=== PATIENT | female | born 1955 | race Caucasian/White ===

== ENCOUNTER 2019-12-13 08:50 | Outpatient (REF) | payer OTHER, SELFPAY ==
[2019-12-13 11:49] LABS: Cholesterol 204 mg/dL; HDL Cholesterol 87 mg/dL; LDL Cholesterol Calculated 107 mg/dl; Triglycerides 50 mg/dL
== END 2019-12-13 08:51 | disposition home or self-care (01) ==
LOC: HO.LAB 08:50
PROVIDERS: PCP Internal Medicine; Visit Provider Internal Medicine Cardiovascular Disease
DX: E78.00 Pure hypercholesterolemia, unspecified (principal); I25.10 Atherosclerotic heart disease of native coronary artery without angina pectoris; I10 Essential (primary) hypertension
CPT/HCPCS: 80061

== ENCOUNTER → 2019-12-16 12:03 | Outpatient (BNVA) | payer OTHER, SELFPAY | PROVIDERS: PCP Internal Medicine; Referring Provider Internal Medicine; Visit Provider Nurse Practitioner Family | DX: Z76.89 Persons encountering health services in other specified circumstances (principal) ==

== ENCOUNTER 2019-12-19 10:03 | Outpatient (REF) | payer OTHER, SELFPAY | END 2019-12-19 10:04 | disposition home or self-care (01) | LOC: HO.LAB 10:03 | PROVIDERS: Visit Provider Internal Medicine | DX: Z20.828 Contact with and (suspected) exposure to other viral communicable diseases (principal) | CPT/HCPCS: 87635 ==

== ENCOUNTER 2019-12-25 02:17 | Outpatient (REF) | payer OTHER, SELFPAY ==
[2019-12-25 04:57] LABS: SARS COV2 PCR INHOUSE NEGATIVE (Negative)
== END 2019-12-25 02:18 | disposition home or self-care (01) ==
LOC: HO.LAB 02:17
PROVIDERS: Visit Provider Internal Medicine
DX: Z20.828 Contact with and (suspected) exposure to other viral communicable diseases (principal)
CPT/HCPCS: 87635

== ENCOUNTER 2019-12-29 12:41 | Outpatient (REF) | payer OTHER, SELFPAY ==
[2019-12-29 13:50] LABS: COVID-19 Test Negative (Negative)
== END 2019-12-29 12:42 | disposition home or self-care (01) ==
LOC: HO.LAB 12:41
PROVIDERS: Visit Provider Internal Medicine
DX: Z20.828 Contact with and (suspected) exposure to other viral communicable diseases (principal)
CPT/HCPCS: 87635

== ENCOUNTER 2020-01-17 07:24 | Outpatient (REF) | payer OTHER, SELFPAY ==
[2020-01-17 11:50] LABS: COVID-19 Test Negative (Negative)
== END 2020-01-17 07:25 | disposition home or self-care (01) ==
LOC: HO.LAB 07:24
PROVIDERS: Visit Provider Internal Medicine
DX: Z20.828 Contact with and (suspected) exposure to other viral communicable diseases (principal)
CPT/HCPCS: 87635; C9803

== ENCOUNTER 2020-05-13 14:22 | Outpatient (REF) | payer OTHER, SELFPAY ==
--- NOTE | ~2020-05-13 | MM_ITS ---
EXAMINATION: BONE DENSITOMETRY CLINICAL INDICATION: Screening for osteoporosis. COMPARISON: Previous BD dated 09/11/2017 and baseline BD dated 06/30/2011. TECHNIQUE: Using a [employer] DXA System (software version: 13.1) manufactured by [employer], dual-energy x-ray absorptiometry was performed of the lumbar spine and left hip. The images are of good technical quality. Summary results are attached. FINDINGS: AP SPINE L1-L4: Current: BMD 0.975 g/cm2, Z-score -1.1, T-score -1.7, osteopenia, 2.7% decrease from previous, 1.0% increase from baseline (<5% change is not significant). Prior: BMD 1.002 g/cm2. Baseline: BMD 0.965 g/cm2. LEFT FEMUR, NECK: Current: BMD 0.773 g/cm2, Z-score -1.1, T-score -1.9, osteopenia. Prior: BMD 0.770 g/cm2. Baseline: BMD 0.870 g/cm2. LEFT FEMUR, TOTAL: Current: BMD 0.878 g/cm2, Z-score -0.6, T-score -1.0, normal, 4.5% increase from previous, 4.7% decrease from baseline (<5% change is not significant). Prior: BMD 0.840 g/cm2. Baseline: BMD 0.921 g/cm2. IDENTIFIED RISK FACTORS: Height loss, kidney disease. Early menopause, secondary osteoporosis. HISTORY OF FRACTURE: None listed. MEDICATIONS: Calcium supplements or multivitamin, vitamin D. MM/XR DEXA axial skeleton IMPRESSION: 1. DIAGNOSIS: Osteopenia based on the lowest T-score value of -1.9 in the femoral neck applying World Health Organization criteria. 2. 10-YEAR FRACTURE RISK PREDICTION, FRAX: Major osteoporotic fracture (clinical spine, forearm, hip or shoulder) 9.4%. Hip fracture 1.2%. 3. Treatment Recommendations: NOF guidelines recommend consideration for treatment in postmenopausal women and men age 50 and older presenting with the following: -A hip or vertebral (clinical or morphometric) fracture. -T-score less than or equal to -2.5 at the femoral neck or spine after appropriate evaluation to exclude secondary causes. -Low bone mass at the hip or spine and a 10-year fracture probability by FRAX of greater than or equal to 3% for hip fracture or greater than or equal to 20% for major osteoporotic fracture based on the [place] adapted WHO algorithm. 4. Other Recommendations: All treatment decisions require clinical judgment and consideration of individual patient factors, including patient preferences, comorbidities, previous drug use, risk factors not captured in the FRAX model (e.g. frailty, falls, vitamin D deficiency, increased bone turnover, interval significant decline in bone density) and possible under or overestimation of fracture risk by FRAX. Additional medical evaluation for secondary cause of low bone mineral density may be appropriate. FUTURE SCAN RECOMMENDATION: People with diagnosed cases of osteoporosis or at high risk for fracture should have regular bone mineral density tests. For patients eligible for Medicare, routine testing is allowed once every 2 years. The testing frequency can be increased to one year for patients who have rapidly progressing disease, those who are receiving or discontinuing medical therapy to restore bone mass, or have additional risk factors.
--- NOTE | ~2020-05-13 | MM_ITS ---
EXAMINATION: MM SCREENING DIGITAL BREAST TOMOSYNTHESIS, BILATERAL CLINICAL INFORMATION: Screening. Asymptomatic. The lifetime risk of breast cancer based on the Tyrer-Cuzick Model is 8.8%. COMPARISON: Mammography: May 11, 2017 and studies dating back to December 20, 2010 TECHNIQUE: Digital breast tomosynthesis is performed in both the craniocaudal and mediolateral oblique views along with computer-aided detection (CAD). Synthesized 2D images are generated from the tomosynthesis. FINDINGS: The breasts are almost entirely fatty (ACR BI-RADS breast composition Category a). There are no significant masses, abnormal calcifications, or other abnormalities. MM/MM tomosynthesis screening BI IMPRESSION: There are no significant changes from prior study. ASSESSMENT: BI-RADS 1: Negative RECOMMENDATION: Routine annual mammography screening. This patient's information was entered into a reminder system with a target due date for their next mammogram.
== END 2020-05-13 14:23 | disposition home or self-care (01) ==
LOC: HO.MAMMO 14:22
PROVIDERS: PCP Internal Medicine; Visit Provider Obstetrics & Gynecology
DX: Z12.31 Encounter for screening mammogram for malignant neoplasm of breast (principal); M81.8 Other osteoporosis without current pathological fracture; M85.80 Other specified disorders of bone density and structure, unspecified site; N28.9 Disorder of kidney and ureter, unspecified; Z78.0 Asymptomatic menopausal state
CPT/HCPCS: 77063; 77067; 77080

== ENCOUNTER 2020-08-22 05:00 | Outpatient (REF) | payer OTHER, SELFPAY ==
[2020-08-22 06:32] LABS: Cholesterol 223 mg/dL; HDL Cholesterol 86 mg/dL; LDL Cholesterol Calculated 125 mg/dl; Triglycerides 61 mg/dL
== END 2020-08-22 05:01 | disposition home or self-care (01) ==
LOC: HO.LAB 05:00
PROVIDERS: Visit Provider Nurse Practitioner Family
DX: E78.5 Hyperlipidemia, unspecified (principal)
CPT/HCPCS: 36415; 80061

== ENCOUNTER 2020-10-18 10:42 | Outpatient (REF) | payer OTHER, SELFPAY ==
[2020-10-18 13:15] LABS: Hematocrit 40.3 % (37-47); Hemoglobin 12.7 g/dl (12.0-16.0); Mean Corpuscular HGB Conc 31.5 g/dl (31.0-35.0); Mean Corpuscular Hemoglobin 30.2 pg (27.0-33.0); Mean Platelet Volume 10.5 fL (9.4-12.3); Platelet Count 259 X10*3/uL (160-400); White Blood Count 5.4 X10*3/uL (4.8-10.8)
[2020-10-18 13:54] LABS: Alanine Aminotransferase 20 U/L (0-31); Albumin Level 4.4 g/dL (3.5-5.0); Alkaline Phosphatase 78 U/L (39-117); Anion Gap 15 (12-20); Aspartate Amino Transferase 24 U/L (5-31); Bilirubin Total 0.5 mg/dL (0.0-1.0); Blood Urea Nitrogen 19 mg/dL (9-16); Calcium 9.4 mg/dL (8.4-10.2); Carbon Dioxide 26 mmol/L (22-29); Chloride 106 mmol/L (96-108); Estimated Glomerular Filt Rate 57; Glucose Fasting 102 mg/dL (60-99); Potassium 5.1 mmol/L (3.3-5.1); Sodium 142 mmol/L (135-145); Total Protein 6.9 g/dL (6.5-8.0)
[2020-10-18 14:00] LABS: TSH reflex Free T4 1.67 uIU/mL (0.32-4.0)
== END 2020-10-18 10:43 | disposition home or self-care (01) ==
LOC: HO.LAB 10:42
PROVIDERS: PCP Internal Medicine; Visit Provider Internal Medicine
DX: Z00.00 Encounter for general adult medical examination without abnormal findings (principal); E78.5 Hyperlipidemia, unspecified; I10 Essential (primary) hypertension
CPT/HCPCS: 36415; 80053; 84443; 85027

== ENCOUNTER → 2020-12-23 13:21 | Outpatient (BNVA) | payer OTHER, SELFPAY | PROVIDERS: PCP Internal Medicine; Referring Provider Internal Medicine; Visit Provider Internal Medicine Cardiovascular Disease | DX: I25.10 Atherosclerotic heart disease of native coronary artery without angina pectoris (principal); E78.5 Hyperlipidemia, unspecified | CPT/HCPCS: 93005 ==

== ENCOUNTER 2021-03-02 23:21 | Emergency (ER) | payer OTHER, SELFPAY ==
--- NOTE | ~2021-03-02 | CT_ITS ---
EXAM: NONCONTRAST AND CONTRAST-ENHANCED CT OF THE ABDOMEN AND PELVIS INDICATION: Rectal bleeding COMPARISON: 08/04/2011 TECHNIQUE: 80 mL Omnipaque 350 IV contrast was utilized. Multidetector helical imaging was performed through the abdomen and pelvis prior to and following contrast administration. Coronal and sagittal reformatted images were created at the technologist workstation. DOSE LOWERING TECHNIQUES: This CT examination was performed using dose optimization techniques as appropriate, variously including the following: - Automated exposure control - Adjustment of mA and/or kV according to patient size (this includes techniques or standardized protocols for targeted exams were dose is matched to indication/reason for exam; i.e. extremities or head) - Use of iterative reconstruction technique DLP: 1926 mGy-cm FINDINGS: The lung bases are clear. The liver is homogeneous in attenuation without intrahepatic biliary ductal dilatation. The gallbladder is unremarkable. The spleen, pancreas, and adrenal glands are within normal limits. Bilateral nephrograms are symmetric. Partially atrophic left kidney with multifocal cortical scarring. No hydronephrosis. No obstructing renal or ureteral calculi are present. The urinary bladder is unremarkable. The uterus and adnexa are unremarkable. There is a segment of descending colon wall thickening with adjacent stranding, suspicious for a short segment of colitis. No evidence of bowel obstruction. The appendix is unremarkable. No active gastrointestinal hemorrhage is seen. No free fluid or free air is identified. Mild atherosclerotic calcification is noted. No retroperitoneal or pelvic lymphadenopathy is seen. Scattered mild degenerative changes noted in the spine. CT/CT gi bleed abd pel wo/w con IMPRESSION: No active gastrointestinal hemorrhage identified. Short segment of colitis in the descending colon. Correlation with recent or followup colonoscopy is advised to exclude an underlying mass lesion.
--- NOTE | 2021-03-02 23:34 | ED_ITS ---
HPI - Abdominal Pain General Chief Complaint: Abdominal Pain <Anne Chase NP - Last Filed: 03/03/21 03:08> Stated Complaint: rectal bleeding <Anne Chase NP - Last Filed: 03/03/21 03:08> Source: patient <Anne Chase NP - Last Filed: 03/03/21 03:08> Mode of arrival: ambulatory <Anne Chase NP - Last Filed: 03/03/21 03:08> Limitations: no limitations <Anne Chase NP - Last Filed: 03/03/21 03:08> History of Present Illness HPI narrative: 65-year-old female presents with 2 days of severe abdominal pain and br ight red blood per rectum. <Anne Chase NP - Last Filed: 03/03/21 03:08> MD elicited complaint: abdominal pain <Anne Chase NP - Last Filed: 03/03/21 03:08> Pertinent past history: none <Anne Chase NP - Last Filed: 03/03/21 03:08> Onset (ago): day(s) (2) <Anne Chase NP - Last Filed: 03/03/21 03:08> Pain Consistency: constant <Anne Chase NP - Last Filed: 03/03/21 03:08> Location: diffuse <Anne Chase NP - Last Filed: 03/03/21 03:08> Severity: severe <Anne Chase NP - Last Filed: 03/03/21 03:08> Quality: cramping, aching and fullness <Anne Chase NP - Last Filed: 03/03/21 03:08> Radiation: back <Anne Chase NP - Last Filed: 03/03/21 03:08> Exacerbating factors: bowel movement and movement <Anne Chase NP - Last Filed: 03/03/21 03:08> Relieving factors: nothing <Anne Chase NP - Last Filed: 03/03/21 03:08> Associated symptoms: constipation and hematochezia <Anne Chase NP - Last Filed: 03/03/21 03:08> Related Data Home Medications: Home Medications Medication Instructions Recorded Confirmed coenzyme Q10 100 mg capsule 100 mg PO DAILY 12/16/19 12/23/20 (CoQ-10) Previous Rx's Medication Instructions Recorded propranolol 60 mg capsule,24 60 mg PO DAILY 90 Days #90 cap 03/02/20 hr,extended release omeprazole 20 mg capsule,delayed 20 mg PO DAILY #90 cap 05/10/20 release amlodipine 2.5 mg tablet 2.5 mg PO DAILY 90 Days #90 tab 10/04/20 ezetimibe 10 mg tablet (Zetia) 10 mg PO DAILY #30 tab 12/23/20 rosuvastatin 10 mg tablet 10 mg PO DAILY #30 tab 12/23/20 levothyroxine 88 mcg tablet 88 mcg PO DAILY #90 tab 01/05/21 levofloxacin 750 mg tablet 750 mg PO DAILY 7 Days #7 tab 03/03/21 metronidazole 500 mg tablet 500 mg PO Q8H 7 Days #21 tab 03/03/21 ondansetron 4 mg disintegrating 4 mg PO Q8H PRN #14 tab 03/03/21 tablet oxycodone 5 mg tablet 5 mg PO Q8H PRN #10 tab 03/03/21 <Anne Chase [employer] - Last Filed: 03/03/21 03:08> Allergies/Adverse Reactions: Allergies Allergy/AdvReac Type Severity Reaction Status Date / Time Sulfa (Sulfonamide Allergy Unknown rash, Verified 03/02/21 23:46 Antibiotics) itching alendronate sodium [Fosamax] AdvReac Unknown gerd Verified 03/02/21 23:46 ezetimibe [Zetia] AdvReac Unknown Diarrhea Verified 03/02/21 23:46 <Anne Chase NP - Last Filed: 03/03/21 03:08> Review of Systems Review of Systems Constitutional: No Weight loss, No Fever, No Chills, No Night Sweats, No Fatigue, No Malaise ENT/Mouth: No Hearing loss, No Ear Pain, No Nasal Congestion, No Sinus Pain, No Hoarseness, No sore throat, No Rhinorrhea, No Swallowing Difficulty Eyes: No Eye Pain, No Swelling, No Redness, No Foreign Body, No Discharge, No V ision Changes Cardiovascular: No Chest Pain, No SOB, No Dyspnea on Exertion, No Orthopnea, No Edema, No Palpitations Respiratory: No Cough, No Sputum, No Wheezing, No Smoke Exposure, No Dyspnea Gastrointestinal: No Nausea, no Vomiting, no Diarrhea, positive abdominal Pain, positive Hematochezia, No Melena Genitourinary: no irregular bleeding, No Dysuria, No Urinary Frequency, No Hematuria, No Urinary Incontinence, No Urgency, No Flank Pain, No Urinary Flow Changes, No Hesitancy Musculoskeletal: No joint pain, No Myalgias, No Joint Swelling Skin: No Skin Lesions, No rash Neuro: No Weakness, No Numbness, No Paresthesias, No Loss of Consciousness, No Dizziness, No Headache Psych: No Anxiety/Panic, No Depression, No SI/HI/AH/VH, No Social Issues Heme/Lymph: No Bruising, No Bleeding,No Lymphadenopathy Endocrine: No Polyuria, No Polydipsia, No Temperature Intolerance <Anne Chase NP - Last Filed: 03/03/21 03:08> Yes all other systems are reviewed and are negative <Anne Chase NP - Last Filed: 03/03/21 03:08> Physical Exam Vital Signs: Vital Signs: Last Vital Signs Temp 97.7 F 03/02/21 23:38 Pulse 85 03/03/21 03:18 Resp 16 03/03/21 03:18 BP 192/92 H 03/03/21 03:18 Pulse Ox 98 03/03/21 03:18 BMI result Body Mass Index 33.4 <Anne Chase NP - Last Filed: 03/03/21 03:08> Vital Signs: Last Vital Signs Temp 97.7 F 03/02/21 23:38 Pulse 85 03/03/21 03:18 Resp 16 03/03/21 03:18 BP 192/92 H 03/03/21 03:18 Pulse Ox 98 03/03/21 03:18 BMI result Body Mass Index 33.4 <Arun Aguilera MD - Last Filed: 03/03/21 07:00> Appearance: Alert. Oriented X3. No acute distress. Eyes: Pupils equal, round and reactive to light. Sclera nonicteric. ENT: Pharynx normal. Moist mucous membranes. Neck: Normal inspection. Neck supple. CVS: Normal heart rate and rhythm. Pulses normal. Respiratory: No respiratory distress. Breath sounds normal. Abdomen: Soft and diffusely tender without rigidity or distention. Rectal exam with normal rectal tone, positive hemorrhoids. Skin: Skin warm and dry. Normal skin color. Normal skin turgor. Extremities: No lower extremity edema. Gait well-balanced well coordinated. Neuro: No motor deficit. No sensory deficit. Cranial nerves 2-12 intact. <Anne Chase NP - Last Filed: 03/03/21 03:08> Course Course Course Narrative: 65-year-old female presents with abdominal pain and bright red blood per r ectum. Will order labs, CT GI study. 1:00 a.m. labs are unremarkable, H&H negative for blood loss anemia, BUN elevated at 25. EKG normal sinus. Troponins negative. CT GI study pending. 2:[address] GI study positive for colitis. 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 Patient would like to be discharged home on p.o. medications. Patient does understand proper follow-up with primary care physician and Gastroenterology. Patient verbalized understanding of and agrees to plan of care discharge home <Anne Chase NP - Last Filed: 03/03/21 03:08> MDM - Abdominal Pain MDM Narrative Medical decision making narrative: Colitis <Anne Chase NP - Last Filed: 03/03/21 03:08> Differential Diagnosis Differential diagnosis: Likely abdominal pain, acute appendicitis, bowel perforation, diverticulitis and mesenteric ischemia <Anne Chase NP - Last Filed: 03/03/21 03:08> Medical Records Attestation: I reviewed the patient's medical records. <Anne Chase NP - Last Filed: 03/03/21 03:08> Lab Data Attestation: I reviewed the patient's lab results. <Anne Chase NP - Last Filed: 03/03/21 03:08> Result diagrams: : 03/02/21 23:58 03/02/21 23:58 <Anne Chase NP - Last Filed: 03/03/21 03:08> Labs: Lab Results 03/02/21 03/02/21 03/02/21 Range/Units 23:58 23:58 23:58 WBC 8.5 (4.8-10.8) X10*3/uL RBC 4.09 L (4.20-5.50) X10*6/uL Hgb 12.4 (12.0-16.0) g/dl Hct 38.6 (37.0-47.0) % MCV 94.4 (80.0-98.0) fL MCH 30.3 (27.0-33.0) pg MCHC 32.1 (31.0-35.0) g/dl RDW 13.9 (11.0-16.0) % Plt Count 247 (160-400) X10*3/uL MPV 9.4 (9.4-12.3) fL Immature Gran % (Auto) 0.2 (0.0-0.4) % Neut % (Auto) 61.0 (45-73) % Lymph % (Auto) 29.6 (20-40) % [place] % (Auto) 8.1 (2-11) % Eos % (Auto) 0.7 (0-4) % Baso % (Auto) 0.4 (0-2) % Lymph # (Auto) 2.5 (1.2-4.9) X10*3/uL [place] # (Auto) 0.7 (0.1-1.2) X10*3/uL Eos # (Auto) 0.1 (0.0-0.4) X10*3/uL Baso # (Auto) 0.0 (0.0-0.2) X10*3/uL Abs Immat Gran (auto) 0.02 (0.00-0.03) X10*3/uL Absolute Neuts (auto) 5.2 (2.0-8.3) x10*3/uL Absolute Nucleated RBC 0.000 (0.0-0.012) X10*3/uL Nucleated RBC % (auto) 0.0 (0.0-0.2) /100WBC PT 10.7 (9.9-13.0) SEC INR 0.9 (0.9-1.1) APTT 33.5 (24.1-38.0) SEC Sodium 142 (135-145) mmol/L Potassium 4.3 (3.3-5.1) mmol/L Chloride 108 (96-108) mmol/L Carbon Dioxide 26 (22-29) mmol/L Anion Gap 12 (12-20) BUN 25 H (9-16) mg/dL Creatinine 0.97 (0.5-1.4) mg/dL Estim Creat Clear Calc 66.2 Estimated GFR 58 Random Glucose 108 (60-115) mg/dL Calcium 9.8 (8.4-10.2) mg/dL Magnesium 2.0 (1.6-2.6) mg/dL Total Bilirubin 0.4 (0.0-1.0) mg/dL Direct Bilirubin < 0.2 (0.0-0.5) mg/dL AST 25 (5-31) U/L ALT 25 (0-31) U/L Alkaline Phosphatase 79 (39-117) U/L Troponin I High Sens (<3.5-17.0) ng/L Total Protein 7.1 (6.5-8.0) g/dL Albumin 4.3 (3.5-5.0) g/dL Lipase 20 (8-78) U/L Stool Occult Blood (NEGATIVE) 03/02/21 03/03/21 Range/Units 23:58 00:06 WBC (4.8-10.8) X10*3/uL RBC (4.20-5.50) X10*6/uL Hgb (12.0-16.0) g/dl Hct (37.0-47.0) % MCV (80.0-98.0) fL MCH (27.0-33.0) pg MCHC (31.0-35.0) g/dl RDW (11.0-16.0) % Plt Count (160-400) X10*3/uL MPV (9.4-12.3) fL Immature Gran % (Auto) (0.0-0.4) % Neut % (Auto) (45-73) % Lymph % (Auto) (20-40) % [place] % (Auto) (2-11) % Eos % (Auto) (0-4) % Baso % (Auto) (0-2) % Lymph # (Auto) (1.2-4.9) X10*3/uL [place] # (Auto) (0.1-1.2) X10*3/uL Eos # (Auto) (0.0-0.4) X10*3/uL Baso # (Auto) (0.0-0.2) X10*3/uL Abs Immat Gran (auto) (0.00-0.03) X10*3/uL Absolute Neuts (auto) (2.0-8.3) x10*3/uL Absolute Nucleated RBC (0.0-0.012) X10*3/uL Nucleated RBC % (auto) (0.0-0.2) /100WBC PT (9.9-13.0) SEC INR (0.9-1.1) APTT (24.1-38.0) SEC Sodium (135-145) mmol/L Potassium (3.3-5.1) mmol/L Chloride (96-108) mmol/L Carbon Dioxide (22-29) mmol/L Anion Gap (12-20) BUN (9-16) mg/dL Creatinine (0.5-1.4) mg/dL Estim Creat Clear Calc Estimated GFR Random Glucose (60-115) mg/dL Calcium (8.4-10.2) mg/dL Magnesium (1.6-2.6) mg/dL Total Bilirubin (0.0-1.0) mg/dL Direct Bilirubin (0.0-0.5) mg/dL AST (5-31) U/L ALT (0-31) U/L Alkaline Phosphatase (39-117) U/L Troponin I High Sens < 3.5 (<3.5-17.0) ng/L Total Protein (6.5-8.0) g/dL Albumin (3.5-5.0) g/dL Lipase (8-78) U/L Stool Occult Blood POSITIVE (NEGATIVE) <Anne Chase NP - Last Filed: 03/03/21 03:08> Lab Results 03/02/21 03/02/21 03/02/21 Range/Units 23:58 23:58 23:58 WBC 8.5 (4.8-10.8) X10*3/uL RBC 4.09 L (4.20-5.50) X10*6/uL Hgb 12.4 (12.0-16.0) g/dl Hct 38.6 (37.0-47.0) % MCV 94.4 (80.0-98.0) fL MCH 30.3 (27.0-33.0) pg MCHC 32.1 (31.0-35.0) g/dl RDW 13.9 (11.0-16.0) % Plt Count 247 (160-400) X10*3/uL MPV 9.4 (9.4-12.3) fL Immature Gran % (Auto) 0.2 (0.0-0.4) % Neut % (Auto) 61.0 (45-73) % Lymph % (Auto) 29.6 (20-40) % [place] % (Auto) 8.1 (2-11) % Eos % (Auto) 0.7 (0-4) % Baso % (Auto) 0.4 (0-2) % Lymph # (Auto) 2.5 (1.2-4.9) X10*3/uL [place] # (Auto) 0.7 (0.1-1.2) X10*3/uL Eos # (Auto) 0.1 (0.0-0.4) X10*3/uL Baso # (Auto) 0.0 (0.0-0.2) X10*3/uL Abs Immat Gran (auto) 0.02 (0.00-0.03) X10*3/uL Absolute Neuts (auto) 5.2 (2.0-8.3) x10*3/uL Absolute Nucleated RBC 0.000 (0.0-0.012) X10*3/uL Nucleated RBC % (auto) 0.0 (0.0-0.2) /100WBC PT 10.7 (9.9-13.0) SEC INR 0.9 (0.9-1.1) APTT 33.5 (24.1-38.0) SEC Sodium 142 (135-145) mmol/L Potassium 4.3 (3.3-5.1) mmol/L Chloride 108 (96-108) mmol/L Carbon Dioxide 26 (22-29) mmol/L Anion Gap 12 (12-20) BUN 25 H (9-16) mg/dL Creatinine 0.97 (0.5-1.4) mg/dL Estim Creat Clear Calc 66.2 Estimated GFR 58 Random Glucose 108 (60-115) mg/dL Calcium 9.8 (8.4-10.2) mg/dL Magnesium 2.0 (1.6-2.6) mg/dL Total Bilirubin 0.4 (0.0-1.0) mg/dL Direct Bilirubin < 0.2 (0.0-0.5) mg/dL AST 25 (5-31) U/L ALT 25 (0-31) U/L Alkaline Phosphatase 79 (39-117) U/L Troponin I High Sens (<3.5-17.0) ng/L Total Protein 7.1 (6.5-8.0) g/dL Albumin 4.3 (3.5-5.0) g/dL Lipase 20 (8-78) U/L Stool Occult Blood (NEGATIVE) 03/02/21 03/03/21 Range/Units 23:58 00:06 WBC (4.8-10.8) X10*3/uL RBC (4.20-5.50) X10*6/uL Hgb (12.0-16.0) g/dl Hct (37.0-47.0) % MCV (80.0-98.0) fL MCH (27.0-33.0) pg MCHC (31.0-35.0) g/dl RDW (11.0-16.0) % Plt Count (160-400) X10*3/uL MPV (9.4-12.3) fL Immature Gran % (Auto) (0.0-0.4) % Neut % (Auto) (45-73) % Lymph % (Auto) (20-40) % [place] % (Auto) (2-11) % Eos % (Auto) (0-4) % Baso % (Auto) (0-2) % Lymph # (Auto) (1.2-4.9) X10*3/uL [place] # (Auto) (0.1-1.2) X10*3/uL Eos # (Auto) (0.0-0.4) X10*3/uL Baso # (Auto) (0.0-0.2) X10*3/uL Abs Immat Gran (auto) (0.00-0.03) X10*3/uL Absolute Neuts (auto) (2.0-8.3) x10*3/uL Absolute Nucleated RBC (0.0-0.012) X10*3/uL Nucleated RBC % (auto) (0.0-0.2) /100WBC PT (9.9-13.0) SEC INR (0.9-1.1) APTT (24.1-38.0) SEC Sodium (135-145) mmol/L Potassium (3.3-5.1) mmol/L Chloride (96-108) mmol/L Carbon Dioxide (22-29) mmol/L Anion Gap (12-20) BUN (9-16) mg/dL Creatinine (0.5-1.4) mg/dL Estim Creat Clear Calc Estimated GFR Random Glucose (60-115) mg/dL Calcium (8.4-10.2) mg/dL Magnesium (1.6-2.6) mg/dL Total Bilirubin (0.0-1.0) mg/dL Direct Bilirubin (0.0-0.5) mg/dL AST (5-31) U/L ALT (0-31) U/L Alkaline Phosphatase (39-117) U/L Troponin I High Sens < 3.5 (<3.5-17.0) ng/L Total Protein (6.5-8.0) g/dL Albumin (3.5-5.0) g/dL Lipase (8-78) U/L Stool Occult Blood POSITIVE (NEGATIVE) <Arun Aguilera MD - Last Filed: 03/03/21 07:00> Imaging Data CT abdomen pelvis GI study: Attestation: I personally reviewed and interpreted this imaging study as follows: <Anne Chase NP - Last Filed: 03/03/21 03:08> Radiologist's impression: EXAM: NONCONTRAST AND CONTRAST-ENHANCED CT OF THE ABDOMEN AND PELVIS INDICATION: Rectal bleeding COMPARISON: 08/04/2011 TECHNIQUE: 80 mL Omnipaque 350 IV contrast was utilized. Multidetector helical imaging was performed through the abdomen and pelvis prior to and following contrast administration. Coronal and sagittal reformatted images were created at the technologist workstation. DOSE LOWERING TECHNIQUES: This CT examination was performed using dose optimization techniques as appropriate, variously including the following: ?- Automated exposure control ?- Adjustment of mA and/or kV according to patient size (this includes techniques or standardized protocols for targeted exams were dose is matched to indication/reason for exam; i.e. extremities or head) ?- Use of iterative reconstruction technique DLP: 1926 mGy-cm FINDINGS: The lung bases are clear. The liver is homogeneous in attenuation without intrahepatic biliary ductal dilatation. The gallbladder is unremarkable. The spleen, pancreas, and adrenal glands are within normal limits. Bilateral nephrograms are symmetric. Partially atrophic left kidney with multifocal cortical scarring. No hydronephrosis. No obstructing renal or ureteral calculi are present. The urinary bladder is unremarkable. The uterus and adnexa are unremarkable. There is a segment of descending colon wall thickening with adjacent stranding, suspicious for a short segment of colitis. No evidence of bowel obstruction. The appendix is unremarkable. No active gastrointestinal hemorrhage is seen. No free fluid or free air is identified. Mild atherosclerotic calcification is noted. No retroperitoneal or pelvic lymphadenopathy is seen. Scattered mild degenerative changes noted in the spine. CT/CT gi bleed abd pel wo/w con IMPRESSION: No active gastrointestinal hemorrhage identified. Short segment of colitis in the descending colon. Correlation with recent or followup colonoscopy is advised to exclude an underlying mass lesion. <Anne Chase NP - Last Filed: 03/03/21 03:08> ECG Data Attestation: I personally reviewed and interpreted this ECG as follows: <Anne Chase NP - Last Filed: 03/03/21 03:08> ECG interpretation date: 03/02/21 <Anne Chase NP - Last Filed: 03/03/21 03:08> ECG interpretation time: 23:56 <Anne Chase NP - Last Filed: 03/03/21 03:08> Prior ECG tracings: available for review <Anne Chase NP - Last Filed: 03/03/21 03:08> Interpretation: Ventricular rate 77 beats per minute, OH 160, QRS 86, QT 370, QTC 418 normal sinus rhythm normal EKG no indication of ST elevation or depression, no indication of ischemia. <Anne Chase NP - Last Filed: 03/03/21 03:08> Discharge Plan Discharge Clinical Impression: Colitis, Bright red rectal bleeding <Anne Chase NP - Last Filed: 03/03/21 03:08> Patient Disposition: Home, Self-Care <Anne Chase NP - Last Filed: 03/03/21 03:08> Instructions: Rectal Bleeding (ED), Colitis (ED) <Anne Chase NP - Last Filed: 03/03/21 03:08> Additional Instructions: You were evaluated for abdominal pain and rectal bleeding. CT abdomen pelvis GI study indicates colitis. Please take Flagyl 500 mg 3 times a day for the next 7 days. Take Levaquin 750 mg for the next 7 days. I prescribed oxycodone for pain management. This medication is a narcotic and has high risk for addiction and abuse. Do not drive or operate machinery while taking this medication. This medication may cause drowsiness, increased risk for falls, delay reaction time, and cause constipation. Please take MiraLax daily while on this medication. Please follow-up with Gastroenterology. I referred you to Dr. Duarte. Thank you for choosing this emergency department for evaluation. Please follow-up with primary care physician as needed. Return to the emergency department for any new, concerning, or worsening symptoms. <Anne Chase NP - Last Filed: 03/03/21 03:08> Prescriptions: New metronidazole 500 mg tablet 500 mg PO Q8H 7 Days Qty: 21 RF: 0 levofloxacin 750 mg tablet 750 mg PO DAILY 7 Days Qty: 7 RF: 0 oxycodone 5 mg tablet 5 mg PO Q8H PRN (Reason: pain) Qty: 10 RF: 0 ondansetron 4 mg tablet,disintegrating 4 mg PO Q8H PRN (Reason: nausea and vomiting) Qty: 14 RF: 0 No Action propranolol 60 mg capsule,extended release 24 hr 60 mg PO DAILY 90 Days Qty: 90 RF: 3 omeprazole 20 mg capsule,delayed release(DR/EC) 20 mg PO DAILY Qty: 90 RF: 3 amlodipine 2.5 mg tablet 2.5 mg PO DAILY 90 Days Qty: 90 RF: 3 levothyroxine 88 mcg tablet 88 mcg PO DAILY Qty: 90 RF: 3 coenzyme Q10 [CoQ-10] 100 mg capsule 100 mg PO DAILY RF: 0 ezetimibe [Zetia] 10 mg tablet 10 mg PO DAILY Qty: 30 RF: 5 rosuvastatin 10 mg tablet 10 mg PO DAILY Qty: 30 RF: 5 <Anne Chase NP - Last Filed: 03/03/21 03:08> Referrals: Kole Duarte [Physician] - 2 days (Colitis) <Anne Chase NP - Last Filed: 03/03/21 03:08> Stand Alone Forms: Work/School Release <Anne Chase NP - Last Filed: 03/03/21 03:08> Interventions: ED Discharge Assessment Last Done: 03/03/21 03:15 <Anne Chase NP - Last Filed: 03/03/21 03:08> Discharge Date/Time: 03/03/21 03:31 <Anne Chase NP - Last Filed: 03/03/21 03:08> [facility] Past Medical History Attestation statement: The following information was validated with the patient. <Anne Chase NP - Last Filed: 03/03/21 03:08> Source: old records reviewed <Anne Chase NP - Last Filed: 03/03/21 03:08> Medical History: Medical History Annual physical exam Coronary arteriosclerosis Hearing loss HLD (hyperlipidemia) HTN (hypertension) Lower back pain Normal colonoscopy <Anne Chase NP - Last Filed: 03/03/21 03:08> Surgical History: Surgical History Hx of breast biopsy Hx of varicose vein stripping <Anne Chase NP - Last Filed: 03/03/21 03:08> Family History Family History: Family History Father CVD (cardiovascular disease) Mother CVD (cardiovascular disease) Arthritis <Anne Chase NP - Last Filed: 03/03/21 03:08> Social History Social History: Social History Housing: House Alcohol intake: current Alcohol intake frequency: holidays/special occasions only Patient Tobacco Use Status: Never used Tobacco e-Cigarette/Vaping Use: Never Used Advance Directives: No Advance Directives Information Provided: Yes Patient : No service: No Current occupational status: employed <Anne Chase NP - Last Filed: 03/03/21 03:08>
--- NOTE | 2021-03-02 23:34 | ECG_ITS ---
Test Reason : cp Blood Pressure : / mmHG Vent. Rate : 077 BPM Atrial Rate : 077 BPM P-R Int : 160 ms QRS Dur : 086 ms QT Int : 370 ms P-R-T Axes : 043 047 035 degrees QTc Int : 418 ms Normal sinus rhythm Normal ECG When compared with ECG of 13-JUL-2019 07:42, No significant change was found Referred By: Anne Chase Electronically Signed By:Wellington Grande
[2021-03-02 23:38] VITALS: BP 175/81; PULSE 88; RESP 12; TEMP 36.5; O2SAT 97; BMI 33.4
[2021-03-03 00:03] LABS: Basophils Percent Auto 0.4 % (0-2); Eosinophils Absolute Auto 0.1 X10*3/uL (0.0-0.4); Eosinophils Percent Auto 0.7 % (0-4); Hematocrit 38.6 % (37.0-47.0); Hemoglobin 12.4 g/dl (12.0-16.0); Imm Gran Abs Auto 0.02 X10*3/uL (0.00-0.03); Imm Gran Pct Auto 0.2 % (0.0-0.4); Lymphocytes Absolute Auto 2.5 X10*3/uL (1.2-4.9); Lymphocytes Percent Auto 29.6 % (20-40); MANUAL DIFF FLAG NO; Mean Corpuscular HGB Conc 32.1 g/dl (31.0-35.0); Mean Corpuscular Hemoglobin 30.3 pg (27.0-33.0); Mean Corpuscular Volume 94.4 fL (80.0-98.0); Mean Platelet Volume 9.4 fL (9.4-12.3); Monocytes Absolute Auto 0.7 X10*3/uL (0.1-1.2); Monocytes Percent Auto 8.1 % (2-11); Neutrophils Absolute Auto 5.2 x10*3/uL (2.0-8.3); Platelet Count 247 X10*3/uL (160-400); Red Blood Count 4.09 X10*6/uL (4.20-5.50); Red Cell Distribution Width 13.9 % (11.0-16.0); White Blood Count 8.5 X10*3/uL (4.8-10.8)
[2021-03-03 00:09] LABS: INTERNATIONAL NORM RATIO 0.9 (0.9-1.1); Prothrombin Time 10.7 SEC (9.9-13.0)
[2021-03-03 00:10] LABS: OBS Int Ctl Valid YES; OBS1 POSITIVE (NEGATIVE)
[2021-03-03 00:12] LABS: Partial Thromboplastin Time 33.5 SEC (24.1-38.0)
[2021-03-03] MEDS: 0.9 % Sodium Chloride 1,000 ML 999 ML IVCONT (00:14)
[2021-03-03 00:17] VITALS: RESP 15
[2021-03-03] MEDS: ondansetron HCL 4 MG/2 ML VIAL IVPUSH (00:17)
[2021-03-03] MEDS: Morphine Sulfate 2 MG/ML CARTRIDGE IVPUSH (00:17)
[2021-03-03 00:23] LABS: Alanine Aminotransferase 25 U/L (0-31); Albumin Level 4.3 g/dL (3.5-5.0); Alkaline Phosphatase 79 U/L (39-117); Anion Gap 12 (12-20); Aspartate Amino Transferase 25 U/L (5-31); Bilirubin Direct < 0.2 mg/dL (0.0-0.5); Bilirubin Total 0.4 mg/dL (0.0-1.0); Blood Urea Nitrogen 25 mg/dL (9-16); Calcium 9.8 mg/dL (8.4-10.2); Carbon Dioxide 26 mmol/L (22-29); Chloride 108 mmol/L (96-108); Creatinine Clr Calc Pharmacy 66.2; Estimated Glomerular Filt Rate 58; Glucose Random 108 mg/dL (60-115); Lipase 20 U/L (8-78); Potassium 4.3 mmol/L (3.3-5.1); Sodium 142 mmol/L (135-145); Total Protein 7.1 g/dL (6.5-8.0)
[2021-03-03 00:24] VITALS: BP 161/77; PULSE 95; RESP 16; O2SAT 96
[2021-03-03 00:27] LABS: Troponin-I High Sensitivity < 3.5 ng/L (<3.5-17.0)
--- NOTE | 2021-03-03 01:42 | PC.NURSE ---
PT stated that she went to have a BM but nothing but blood came out. Blood had multiple clots with some clear mucous mixed in.
[2021-03-03] MEDS: iohexoL 350 MG/ML 100 ML INFUS..BTL 80 ML IV (01:46)
[2021-03-03 02:17] VITALS: BP 155/76; PULSE 80; RESP 18; O2SAT 99
[2021-03-03] MEDS: metroNIDAZOLE 500 MG TABLET PO (03:03)
[2021-03-03] MEDS: levoFLOXacin 750 MG TABLET PO (03:03)
[2021-03-03] MEDS: oxyCODONE HCl Immed Release 5 MG TABLET PO (03:03)
[2021-03-03 03:18] VITALS: BP 192/92; PULSE 85; RESP 16; O2SAT 98
--- NOTE | 2021-03-03 03:21 | PC.NURSE ---
PT found to be hypertensive upon assessment at discharge. PT stated that she did not take her BP meds before coming to the hospital and would do so as soon as she gets home. PT is asymptomatic with hypertension.
== END 2021-03-03 03:31 | disposition home or self-care (01) ==
PROVIDERS: Nurse Practitioner Family; Emergency Provider Emergency Medicine; PCP Internal Medicine
DX: K52.9 Noninfective gastroenteritis and colitis, unspecified (principal); K62.5 Hemorrhage of anus and rectum; R10.9 Unspecified abdominal pain; I10 Essential (primary) hypertension; E78.5 Hyperlipidemia, unspecified; Z79.02 Long term (current) use of antithrombotics/antiplatelets; Z79.899 Other long term (current) drug therapy
CPT/HCPCS: 36415; 74178; 80048; 80076; 82272; 83690; 83735; 84484; 85025; 85610; 85730; 93005; 96361; 96374; 96375; 99284; J2270; J2405; Q9967

== ENCOUNTER 2021-04-12 10:35 | Outpatient (REF) | payer OTHER, SELFPAY ==
--- NOTE | ~2021-04-12 | XR_ITS ---
EXAMINATION: XR KNEE, RIGHT CLINICAL INFORMATION: Unremarkable. COMPARISON: None TECHNIQUE: Four views of the right knee. FINDINGS: There is mild medial and significant patellofemoral compartment loss of joint space with periarticular spurring. There is no loose bodies. No bony erosive changes. No abnormal suprapatellar joint effusion. The soft tissues are normal. XR/XR knee RT 4V IMPRESSION: Mild degenerative changes medial and patellofemoral compartments with periarticular spurring. No visible acute fracture or dislocation seen.
== END 2021-04-12 10:36 | disposition home or self-care (01) ==
LOC: HO.HMGCX 10:35
PROVIDERS: Visit Provider Internal Medicine
DX: S83.91XD Sprain of unspecified site of right knee, subsequent encounter (principal)
CPT/HCPCS: 73564

== ENCOUNTER → 2021-12-22 13:08 | Outpatient (RCR) | payer OTHER, SELFPAY ==
[2020-01-31 10:44] LABS: COVID-19 Test Negative (Negative)
[2020-02-07 08:54] LABS: COVID-19 Test Negative (Negative)
[2020-03-01 09:07] LABS: COVID-19 Test Negative (Negative)
[2020-03-18 13:24] LABS: SARS-COV-2 PCR UMBRL Not Detected
== END | disposition home or self-care (01) ==
LOC: HO.EMPCOV 01-31 10:18
PROVIDERS: Visit Provider Internal Medicine
DX: Z20.828 Contact with and (suspected) exposure to other viral communicable diseases (principal)
CPT/HCPCS: 36415; 87635; C9803; U0003